=== PATIENT | male | born 1990 | race African-American/Black ===

== ENCOUNTER 2018-11-25 12:55 | Emergency (ER) | payer OTHER, SELFPAY ==
[~2018-11-25] VITALS: Ht 167.6 cm; Wt 100.6 kg
[2018-11-25] MEDS ORDERED: IBUPROFEN 800 MG TAB PO ONE (14:00)
--- NOTE | 2018-11-25 14:37 | REP ---
LEFT HAND: Four views of the left hand performed. There is an old avulsion fracture at the dorsal base of the fifth distal phalanx. No acute fracture, dislocation, or intrinsic bone disease is seen. IMPRESSION: No acute fracture or dislocation. Electronically Signed by Fadi Naranjo MD 11/25/2018 06:18 P
[2018-11-25 14:49] VITALS: BP 131/78
== END 2018-11-25 14:57 | disposition home or self-care (01) ==
LOC: M ED 12:55
DX: S63.502A Unspecified sprain of left wrist, initial encounter (principal); S60.222A Contusion of left hand, initial encounter; Z87.81 Personal history of (healed) traumatic fracture; W22.8XXA Striking against or struck by other objects, initial encounter; Y92.099 Unspecified place in other non-institutional residence as the place of occurrence of the external cause; Y93.9 Activity, unspecified; Y99.9 Unspecified external cause status; Z72.0 Tobacco use

== ENCOUNTER 2019-05-15 14:48 | Emergency (ER) | payer OTHER, SELFPAY ==
[~2019-05-15] VITALS: Ht 167.6 cm; Wt 104.1 kg
[2019-05-15 15:45] VITALS: BP 134/70
== END 2019-05-15 17:33 | disposition home or self-care (01) ==
LOC: M ED 14:48
DX: F41.9 Anxiety disorder, unspecified (principal); Z79.899 Other long term (current) drug therapy

== ENCOUNTER 2019-05-18 14:31 | Emergency (ER) | payer OTHER ==
[~2019-05-18] VITALS: Ht 165.1 cm; Wt 100.0 kg
[2019-05-18 15:37] LABS: BASO # 0.1 10^3/uL (0.0-0.2); BASO % 0.7 % (0.0-1.0); EOS # 0.1 10^3/uL (0.0-0.5); EOS % 1.2 % (0.0-3.0); LYMPH # 1.4 10^3/uL (1.5-5.0); LYMPH % 13.1 % (24.0-44.0); MEAN CORPUSCULAR HEMOGLOBIN 29.4 pg (27.0-33.0); MEAN CORPUSCULAR HGB CONC 33.3 g/dl (32.0-36.5); MEAN CORPUSCULAR VOLUME 88.1 fl (80.0-96.0); MONO # 1.4 10^3/uL (0.0-0.8); MONO % 12.8 % (0.0-5.0); NEUTROPHILS # 7.5 10^3/uL (1.5-8.5); NEUTROPHILS % 71.2 % (36.0-66.0); PLATELET COUNT, AUTOMATED 200 10^3/uL (150-450); RED BLOOD COUNT 5.45 10^6/uL (4.30-6.10); WHITE BLOOD COUNT 10.5 10^3/uL (4.0-10.0)
[2019-05-18 16:13] LABS: MONO SCRN NEGATIVE (NEGATIVE)
[2019-05-18] MEDS ORDERED: CEFD1CAP8 PO (17:20)
[2019-05-18 17:30] VITALS: BP 132/86
== END 2019-05-18 17:35 | disposition home or self-care (01) ==
LOC: M ED 14:31
DX: J03.90 Acute tonsillitis, unspecified (principal); F17.210 Nicotine dependence, cigarettes, uncomplicated

== ENCOUNTER 2019-08-25 13:51 | Emergency (ER) | payer OTHER ==
[~2019-08-25] VITALS: Ht 167.6 cm; Wt 108.0 kg
[~2019-08-25 13:51] MED LIST: CEFD1CAP8 PO
[2019-08-25] MEDS ORDERED: ADENOSINE 6MG/2ML INJECTION (J0153) IV STA ×3 (14:22)
[2019-08-25] MEDS ORDERED: ADENOSINE 6MG/2ML INJECTION (J0153) As Ordered ONE (14:23)
[2019-08-25 14:57] LABS: BASO # 0.1 10^3/uL (0.0-0.2); BASO % 0.8 % (0.0-1.0); EOS # 0.2 10^3/uL (0.0-0.5); EOS % 2.1 % (0.0-3.0); HEMATOCRIT 49.4 % (42.0-52.0); HEMOGLOBIN 16.2 g/dl (13.5-17.5); LYMPH % 37.8 % (24.0-44.0); MEAN CORPUSCULAR HEMOGLOBIN 28.3 pg (27.0-33.0); MEAN CORPUSCULAR HGB CONC 32.8 g/dl (32.0-36.5); MEAN CORPUSCULAR VOLUME 86.2 fl (80.0-96.0); MONO # 1.1 10^3/uL (0.0-0.8); MONO % 14.1 % (0.0-5.0); NEUTROPHILS # 3.6 10^3/uL (1.5-8.5); NEUTROPHILS % 44.4 % (36.0-66.0); PLATELET COUNT, AUTOMATED 209 10^3/uL (150-450); RED BLOOD COUNT 5.73 10^6/uL (4.30-6.10)
[2019-08-25 15:17] LABS: BLOOD UREA NITROGEN 10 MG/DL (7-18); CALCIUM LEVEL 8.4 MG/DL (8.5-10.1); CARBON DIOXIDE LEVEL 28 MEQ/L (21-32); CHLORIDE LEVEL 108 MEQ/L (98-107); CK-MB VALUE MASS < 1.0 NG/ML (<3.6); CPK CREATINE PHOSPHOKINASE 291 U/L (39-308); CREATININE FOR GFR 1.17 MG/DL (0.70-1.30); GLOMERULAR FILTRATION RATE > 60.0 (>60); GLUCOSE, FASTING 103 MG/DL (70-100); MB/CK RELATIVE INDEX 0.34 (< OR =4); POTASSIUM SERUM 3.9 MEQ/L (3.5-5.1); SODIUM LEVEL 142 MEQ/L (136-145); TROPONIN I < 0.02 NG/ML (< 0.10)
[2019-08-25] MEDS ORDERED: VERAPAMIL 40 MG TAB PO ONE (16:00)
[2019-08-25] MEDS ORDERED: VERA40TA PO (16:09)
[2019-08-25 16:20] VITALS: BP 116/60
[2019-08-25 16:27] VITALS: BP 116/60
--- NOTE | 2019-08-26 08:25 | REP ---
REASON: Chest pain. FINDINGS: The technique utilized in obtaining the radiograph has magnified the cardiac silhouette and accentuated the interstitial markings. The superior mediastinal structures are midline. The cardiac silhouette is unremarkable in size, shape, and position. The diaphragmatic surfaces of the lungs are regular, and the costophrenic angles are clear. The pulmonary dickerson are clear. The imaged osseous structures are intact. IMPRESSION: There is no acute cardiopulmonary disease. Electronically Signed by Jose Pan DO 08/30/2019 04:14 P
--- NOTE | 2019-08-26 08:31 | ECGEPIP ---
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
--- NOTE | 2019-08-26 08:32 | ECGEPIP ---
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
== END 2019-08-25 16:32 | disposition home or self-care (01) ==
LOC: EDBD 13:51 → M ED 13:51
DX: I47.1 Supraventricular tachycardia (principal); F41.9 Anxiety disorder, unspecified; F10.20 Alcohol dependence, uncomplicated; Z79.899 Other long term (current) drug therapy
CPT/HCPCS: 36415; 71045; 80048; 82550; 82553; 84443; 85025; 93005; 93041; 94760; 96374; 96376; 99285; J0153

== ENCOUNTER 2019-08-26 14:40 | Emergency (ER) | payer OTHER ==
[~2019-08-26] VITALS: Ht 165.1 cm; Wt 108.6 kg
[~2019-08-26 14:40] MED LIST changes: +VERA40TA PO
[2019-08-26] MEDS ORDERED: ASPIRIN 81 MG CHEW TABLET PO ONE (16:30)
[2019-08-26 17:10] LABS: BASO % 0.4 % (0.0-1.0); EOS % 0.6 % (0.0-3.0); HEMATOCRIT 51.4 % (42.0-52.0); HEMOGLOBIN 16.8 g/dl (13.5-17.5); LYMPH # 1.2 10^3/uL (1.5-5.0); LYMPH % 17.3 % (24.0-44.0); MEAN CORPUSCULAR HEMOGLOBIN 28.7 pg (27.0-33.0); MEAN CORPUSCULAR HGB CONC 32.7 g/dl (32.0-36.5); MEAN CORPUSCULAR VOLUME 87.9 fl (80.0-96.0); MONO # 0.6 10^3/uL (0.0-0.8); NEUTROPHILS # 5.1 10^3/uL (1.5-8.5); NEUTROPHILS % 72.1 % (36.0-66.0); PLATELET COUNT, AUTOMATED 206 10^3/uL (150-450); RED BLOOD COUNT 5.85 10^6/uL (4.30-6.10); WHITE BLOOD COUNT 7.1 10^3/uL (4.0-10.0)
--- NOTE | 2019-08-26 17:12 | REP ---
Clinical: Chest pain . Comparison: 08/25/2019 . Technique: PA and lateral. Findings: The mediastinum and cardiac silhouette are normal. The lung dickerson are clear and without acute consolidation, effusion, or pneumothorax. The skeletal structures are intact and normal. Impression: 1. No acute cardiopulmonary process. Electronically Signed by Addy Alvarez MD 08/26/2019 05:04 P
[2019-08-26 17:31] LABS: ALT/SGPT 28 U/L (12-78); BILIRUBIN,DIRECT 0.4 MG/DL (0.0-0.2); BILIRUBIN,TOTAL 1.4 MG/DL (0.2-1.0); BLOOD UREA NITROGEN 10 MG/DL (7-18); CALCIUM LEVEL 9.2 MG/DL (8.5-10.1); CARBON DIOXIDE LEVEL 25 MEQ/L (21-32); CHLORIDE LEVEL 108 MEQ/L (98-107); CK-MB VALUE MASS < 1.0 NG/ML (<3.6); CPK CREATINE PHOSPHOKINASE 181 U/L (39-308); CREATININE FOR GFR 1.15 MG/DL (0.70-1.30); GLOMERULAR FILTRATION RATE > 60.0 (>60); GLUCOSE, FASTING 85 MG/DL (70-100); LIPASE 84 U/L (73-393); MB/CK RELATIVE INDEX 0.55 (< OR =4); SODIUM LEVEL 140 MEQ/L (136-145); TOTAL PROTEIN 7.5 GM/DL (6.4-8.2); TROPONIN I < 0.02 NG/ML (< 0.10)
[2019-08-26 17:39] LABS: INR 1.06; PROTHROMBIN TIME 13.5 SECONDS (11.8-14.0)
[2019-08-26 18:16] VITALS: BP 120/68
--- NOTE | 2019-08-26 20:01 | ECGEPIP ---
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
== END 2019-08-26 18:18 | disposition home or self-care (01) ==
LOC: M ED 14:40
DX: R07.9 Chest pain, unspecified (principal); F41.9 Anxiety disorder, unspecified; F17.210 Nicotine dependence, cigarettes, uncomplicated

== ENCOUNTER → 2020-01-25 | Outpatient (CLI) | payer OTHER | LOC: M LABSMTC 09:06 | PROVIDERS: ATTEND Anesthesiology | DX: Z01.818 Encounter for other preprocedural examination (principal); Z11.59 Encounter for screening for other viral diseases ==

== ENCOUNTER 2020-01-28 13:52 | Day surgery (SDC) | payer OTHER ==
[~2020-01-28] VITALS: Ht 165.1 cm; Wt 115.8 kg
[~2020-01-28 13:52] MED LIST changes: +LR 1,000 ML IV SCH; +ceFAZolin SOD 2 GM in IV 1 EA IV ONE
[2020-01-28] MEDS ORDERED: fentaNYL 100 MCG/2 ML INJECTION (J3010) As Ordered ONE (14:13)
[2020-01-28] MEDS ORDERED: MIDAZOLAM INJ 2MG/2ML VIAL (J2250 PER 1MG) As Ordered ONE (14:13)
[2020-01-28] MEDS ORDERED: LIDOCAINE 1% MDV 20ML VIAL As Ordered ONE (14:48)
[2020-01-28] MEDS ORDERED: ONDANSETRON 4MG/2ML VIAL As Ordered ONE (15:25)
[2020-01-28 16:35] VITALS: BP 118/59
--- NOTE | 2020-01-28 17:16 | RO ---
DATE OF PROCEDURE: 01/28/2020 PREPROCEDURE DIAGNOSIS: Supraventricular tachycardia. POSTPROCEDURE DIAGNOSIS: Supraventricular tachycardia. FINDINGS: Supraventricular tachycardia. PROCEDURE PERFORMED: Implantation of Medtronic implantable loop recorder. SURGEON: Cristhian Berrios MD DINING ROOM SERVER: None. ANESTHESIA: Lidocaine 1% local/monitored anesthetic care. SPECIMENS: None. ESTIMATED BLOOD LOSS: Less than 3 mL. No blood products replaced. No drains. No complications. DESCRIPTION OF PROCEDURE: The patient was prepped and draped over the anterior central chest and left anterior chest. Lidocaine 1% was used for local anesthetic. Incision approximately 1 cm in length was made with a #15 blade at approximately the left 4th interspace 1 inch lateral to the left parasternal border using a #15 blade. The guide on the insertion tool was placed into the incision and advanced parallel to the skin in a left lateral-caudal direction. The insertion tool was rotated 180 degrees. The plunger was then used to advance the implantable loop recorder into the subcutaneous fat. The plunger was removed and then the insertion tool was removed leaving the loop recorder in situ. The initial R wave amplitude was 0.94 millivolts. The incision was then approximated using a temporary use of a #4-0 Biosyn placed subcuticular with the free ends protruding a centimeter from either end of the incision line at the level of the skin. Two layers of Dermabond was applied. Then, the Biosyn suture was pulled through the incision line and removed entirely. The patient tolerated the procedure well without any immediate complications. The implantable loop recorder implanted was a Uplogix Reveal LINQ model LNQ11. Serial number was [id number].
== END 2020-01-28 16:42 | disposition home or self-care (01) ==
LOC: M SDC 13:52
PROVIDERS: ATTEND Internal Medicine Cardiovascular Disease
DX: I47.1 Supraventricular tachycardia (principal); F41.9 Anxiety disorder, unspecified; G43.909 Migraine, unspecified, not intractable, without status migrainosus; F17.218 Nicotine dependence, cigarettes, with other nicotine-induced disorders
CPT/HCPCS: 33285; C1764; J0690; J2250; J2405; J3010

== ENCOUNTER → 2020-02-06 | Outpatient (REF) | payer OTHER ==
[~2020-02-06] MED LIST changes: -LR 1,000 ML IV SCH; -ceFAZolin SOD 2 GM in IV 1 EA IV ONE
[2020-02-06 13:57] LABS: BASO # 0.1 10^3/uL (0.0-0.2); BASO % 0.8 % (0.0-1.0); EOS # 0.1 10^3/uL (0.0-0.5); EOS % 1.9 % (0.0-3.0); HEMATOCRIT 47.8 % (42.0-52.0); HEMOGLOBIN 15.8 g/dl (13.5-17.5); LYMPH # 1.6 10^3/uL (1.5-5.0); LYMPH % 26.1 % (24.0-44.0); MEAN CORPUSCULAR HEMOGLOBIN 28.5 pg (27.0-33.0); MEAN CORPUSCULAR HGB CONC 33.1 g/dl (32.0-36.5); MEAN CORPUSCULAR VOLUME 86.1 fl (80.0-96.0); MONO # 0.7 10^3/uL (0.0-0.8); MONO % 10.9 % (0.0-5.0); NEUTROPHILS # 3.7 10^3/uL (1.5-8.5); NEUTROPHILS % 59.8 % (36.0-66.0); PLATELET COUNT, AUTOMATED 211 10^3/uL (150-450); RED BLOOD COUNT 5.55 10^6/uL (4.30-6.10); WHITE BLOOD COUNT 6.2 10^3/uL (4.0-10.0)
[2020-02-06 14:24] LABS: ALBUMIN 3.8 GM/DL (3.2-5.2); ALT/SGPT 29 U/L (12-78); BILIRUBIN,TOTAL 0.9 MG/DL (0.2-1.0); BLOOD UREA NITROGEN 10 MG/DL (7-18); CALCIUM LEVEL 8.9 MG/DL (8.5-10.1); CARBON DIOXIDE LEVEL 31 MEQ/L (21-32); CHLORIDE LEVEL 107 MEQ/L (98-107); CHOLESTEROL LEVEL 140 MG/DL (<200); CHOLESTEROL RISK RATIO 2.692 (<5); CREATININE FOR GFR 1.01 MG/DL (0.70-1.30); FREE T4 1.11 NG/DL (0.76-1.46); GLOMERULAR FILTRATION RATE > 60.0 (>60); GLUCOSE, FASTING 73 MG/DL (70-100); HDL CHOLESTEROL 52 MG/DL (>40); LDL CHOLESTEROL 80 MG/DL (<100); NON-HDL-C 88 MG/DL; POTASSIUM SERUM 4.3 MEQ/L (3.5-5.1); SODIUM LEVEL 141 MEQ/L (136-145); TRIGLYCERIDES LEVEL 41 MG/DL (<150)
[2020-02-06 14:43] LABS: HEMOGLOBIN A1c 3.9 %
[2020-02-09 20:07] LABS: D001-IgE D pteronyssinus <0.10 kU/L (Class 0); E001-IgE Cat Epith/Dander < 0.10 kU/L (Class 0); E005-IgE Dog Dander < 0.10 kU/L (Class 0); G002-IgE Bermuda Grass < 0.10 kU/L (Class 0); G008-IgE Kentucky Bluegrass < 0.10 kU/L (Class 0); M001-IgE Penicillium chrysogen < 0.10 kU/L (Class 0); M002 IgE Cladosporium herbaru < 0.10 kU/L (Class 0); M003 IgE Aspergillus fumigatu < 0.10 kU/L (Class 0); M006-IgE Alternaria alternata < 0.10 kU/L (Class 0); T001-IgE Maple/Box Elder < 0.10 kU/L (Class 0); T003-IgE Common Silver Birch < 0.10 kU/L (Class 0); T006-IgE Cedar, Mountain < 0.10 kU/L (Class 0); T007-IgE Oak, White < 0.10 kU/L (Class 0); T008-IgE Elm, American < 0.10 kU/L (Class 0); T015-IgE Ash, White < 0.10 kU/L (Class 0); T041-IgE Hickory, White < 0.10 kU/L (Class 0); T070-IgE White Mulberry < 0.10 kU/L (Class 0); W001-IgE Ragweed, Short < 0.10 kU/L (Class 0); W009-IgE Plantain, English < 0.10 kU/L (Class 0); W014-IgE Pigweed, Rough < 0.10 kU/L (Class 0); W018-IgE Sheep Sorrel < 0.10 kU/L (Class 0)
== END ==
LOC: M SFHCPLAZ 09:54
PROVIDERS: ATTEND Physician Assistant Medical
DX: R51 Headache (principal); I47.1 Supraventricular tachycardia; Z13.220 Encounter for screening for lipoid disorders; E66.01 Morbid (severe) obesity due to excess calories

== ENCOUNTER 2020-08-08 20:35 | Emergency (ER) | payer OTHER ==
[~2020-08-08] VITALS: Ht 167.6 cm; Wt 123.2 kg
[2020-08-08 20:36] VITALS: BP 142/94
== END 2020-08-08 21:10 | disposition left against medical advice (07) ==
LOC: M ED 20:35
DX: Z53.29 Procedure and treatment not carried out because of patient's decision for other reasons (principal)

== ENCOUNTER 2020-08-09 18:04 | Emergency (ER) | payer OTHER ==
[~2020-08-09] VITALS: Ht 168.9 cm; Wt 120.7 kg
[2020-08-09] MEDS ORDERED: NS 1,000 ML IV ONE ×2 (19:15→21:15)
[2020-08-09] MEDS ORDERED: ONDANSETRON 4MG/2ML VIAL IV ONE (20:15)
[2020-08-09] MEDS ORDERED: MORPHINE 2 MG/ML 1ML VIAL (J2270) IV ONE (20:15)
[2020-08-09 20:21] LABS: BASO % 0.2 % (0.0-1.0); EOS # 0.1 10^3/uL (0.0-0.5); EOS % 1.1 % (0.0-3.0); HEMATOCRIT 45.4 % (42.0-52.0); HEMOGLOBIN 14.3 g/dl (13.5-17.5); LYMPH # 1.8 10^3/uL (1.5-5.0); MEAN CORPUSCULAR HEMOGLOBIN 26.1 pg (27.0-33.0); MEAN CORPUSCULAR HGB CONC 31.5 g/dl (32.0-36.5); MEAN CORPUSCULAR VOLUME 82.8 fl (80.0-96.0); MONO # 1.2 10^3/uL (0.0-0.8); MONO % 11.8 % (0.0-5.0); NEUTROPHILS # 6.9 10^3/uL (1.5-8.5); NEUTROPHILS % 68.3 % (36.0-66.0); PLATELET COUNT, AUTOMATED 225 10^3/uL (150-450); RED BLOOD COUNT 5.48 10^6/uL (4.30-6.10)
--- NOTE | 2020-08-09 20:21 | REPVR ---
PROCEDURE INFORMATION: Exam: XR Abdomen, 1 View Exam date and time: 08/09/2020 7:46 PM Age: 29 years old Clinical indication: Abdominal pain; Additional info: Constipation x 5 days TECHNIQUE: Imaging protocol: XR of the abdomen. Views: Frontal supine view of the abdomen. 1 View. COMPARISON: No relevant prior studies available. FINDINGS: Gastrointestinal tract: Small amount of stool noted in the ascending colon and proximal descending colon. Few minimally dilated air-containing small bowel loops in the left mid abdomen. Bones/joints: Unremarkable. IMPRESSION: 1. Small stool burden. 2. Mild focal small bowel ileus. Electronically signed by: Joie Armijo On 08/09/2020 20:21:44 PM
[2020-08-09 20:55] LABS: ALBUMIN 3.7 GM/DL (3.2-5.2); ALT/SGPT 20 U/L (12-78); BILIRUBIN,DIRECT 0.4 MG/DL (0.0-0.2); BILIRUBIN,TOTAL 1.4 MG/DL (0.2-1.0); BLOOD UREA NITROGEN 13 MG/DL (7-18); CALCIUM LEVEL 8.9 MG/DL (8.5-10.1); CARBON DIOXIDE LEVEL 25 MEQ/L (21-32); CHLORIDE LEVEL 105 MEQ/L (98-107); CK-MB VALUE MASS < 1.0 NG/ML (<3.6); CPK CREATINE PHOSPHOKINASE 528 U/L (39-308); GLOMERULAR FILTRATION RATE > 60.0 (>60); GLUCOSE, FASTING 64 MG/DL (70-100); LIPASE 173 U/L (73-393); MB/CK RELATIVE INDEX 0.19 (< OR =4); POTASSIUM SERUM 3.8 MEQ/L (3.5-5.1); SODIUM LEVEL 140 MEQ/L (136-145); TOTAL PROTEIN 7.2 GM/DL (6.4-8.2); TROPONIN I < 0.02 NG/ML (< 0.10)
[2020-08-09] MEDS ORDERED: MULTIVITAMIN -ADULT INJECTION 10 ML, THIAMINE INJection 100 MG, FOLIC ACID 1 MG in NS 1... IV ONE (21:15)
[2020-08-09] MEDS ORDERED: MORPHINE 4 MG/ML 1ML VIAL/SYRINGE (J2270) IV ONE (23:30)
[2020-08-09] MEDS ORDERED: METOCLOPRAMIDE INJ 10MG/2ML VIAL (J2765 PER 1) IV ONE (23:30)
[2020-08-09] MEDS: GASTROGRAFIN SOLUTION 30ML PO SCH (23:33)
[2020-08-10] MEDS: GASTROGRAFIN SOLUTION 30ML PO SCH (00:11)
[2020-08-10] MEDS ORDERED: ISOVUE-370 76% 100ML VIAL As Ordered ONE (01:01)
--- NOTE | 2020-08-10 01:43 | REPVR ---
PROCEDURE INFORMATION: Exam: CT Abdomen And Pelvis With Contrast Exam date and time: 08/09/2020 1:12 AM Age: 29 years old Clinical indication: Abdominal pain; Prior surgery; Additional info: Recent gastric bypass, epigastric pain TECHNIQUE: Imaging protocol: Computed tomography of the abdomen and pelvis with intravenous contrast. Radiation optimization: All CT scans at this facility use at least one of these dose optimization techniques: automated exposure control; mA and/or kV adjustment per patient size (includes targeted exams where dose is matched to clinical indication); or iterative reconstruction. Contrast material: ISO 370; Contrast volume: 100 ml; Contrast route: INTRAVENOUS (IV); COMPARISON: CR Abdomen,Flat Plate KUB 08/09/2020 7:39 PM FINDINGS: Lungs: The imaged portions of the lung bases are clear. The lungs were not fully imaged. Heart: No cardiomegaly or pericardial effusion. Diaphragm: Intact. Liver: Unremarkable. No liver lesion is identified. The contour of the liver is smooth. No hepatomegaly is noted. Gallbladder and bile ducts: No calcified gallstones are noted. No gallbladder wall thickening, pericholecystic fluid, or pericholecystic inflammatory changes are identified. No dilation of the bile ducts is noted. No calcified stones are seen in the common bile duct. Pancreas: Normal. No dilation of the main pancreatic duct is noted. There is no inflammatory fat stranding around the pancreas to suggest acute pancreatitis. Spleen: Normal. No splenomegaly is noted. Incidental note is made of a small accessory spleen. Adrenal glands: Normal. No adrenal mass is noted. Kidneys and ureters: The kidneys are normal in appearance. No renal lesion is noted. No stones are noted in the kidneys or ureters. There is no hydronephrosis or hydroureter. There are no wedge-shaped areas of low attenuation in the kidneys to suggest pyelonephritis. There is no renal abscess or perinephric fluid collection. Stomach and bowel: Postoperative changes are noted from a Aby-en-Y gastric bypass surgery. There is thickening of the wall of the excluded stomach. There is no evidence for a bowel obstruction, diverticulosis, diverticulitis, colitis, perforated viscus, pneumatosis intestinalis, intussusception, or volvulus. Appendix: The appendix is not identified and may have been removed. No dilated blind ending tubular structure, inflammatory fat stranding, or fluid is noted in the expected location of the appendix. Intraperitoneal space: No free air. No ascites. No asbcess. Retroperitoneal space: No fluid collection. No mass. Vasculature: The abdominal aorta is patent, normal in caliber, and there is no dissection. The iliac arteries, common femoral arteries, renal arteries, celiac artery, superior mesenteric artery, and inferior mesenteric artery are patent. The iliac veins, inferior vena cava, portal veins, splenic vein, superior mesenteric vein, inferior mesenteric vein, and renal veins are patent. Incidental note is made of a retroaortic left renal vein. Lymph nodes: Normal. No enlarged lymph nodes. Urinary bladder: The distended urinary bladder is normal in appearance. No stones or masses are seen in the bladder. Reproductive: The prostate gland and seminal vesicles are unremarkable. Bones/joints: There is no fracture or dislocation. No suspicious osteolytic or osteoblastic lesion. Soft tissues: Small foci of gas and edema are noted in the soft tissues in the anterior abdominal wall. No hernia or drainable soft tissue fluid collection is noted. IMPRESSION: Postoperative changes from a Aby-en-Y gastric bypass surgery and there is thickening of the wall of the excluded stomach, which may represent gastritis or may be due to its decompressed state. Electronically signed by: Nathaniel Mcknight On 08/10/2020 01:43:39 AM
[2020-08-10] MEDS ORDERED: NORC1TAB7 PO (01:54)
[2020-08-10 02:05] VITALS: BP 131/78
[2020-08-11] MEDS ORDERED: ENOX40IN3 SUBQ (09:48)
== END 2020-08-10 02:09 | disposition home or self-care (01) ==
LOC: M ED 18:04
DX: G89.18 Other acute postprocedural pain (principal); K29.70 Gastritis, unspecified, without bleeding; K59.00 Constipation, unspecified; Z98.84 Bariatric surgery status
CPT/HCPCS: 74018; 74177; 80048; 80076; 81001; 82550; 82553; 83605; 83690; 85025; 96365; 96366; 96375; 96376; 99284; J2270; J2405; J2765; J3411; Q9963; Q9967

== ENCOUNTER 2020-08-11 09:29 | Emergency (ER) | payer OTHER ==
[~2020-08-11] VITALS: Ht 167.6 cm; Wt 120.0 kg
[~2020-08-11 09:29] MED LIST changes: +NORC1TAB7 PO
[2020-08-11] MEDS ORDERED: ENOX40IN3 SUBQ (09:48)
--- NOTE | 2020-08-11 10:33 | REP ---
INDICATION: CHEST PAIN. COMPARISON: Comparison chest x-ray August 26, 2019.. TECHNIQUE: Upright portable AP chest radiograph. FINDINGS: Monitoring electrodes are seen. The lungs are well inflated and clear. The pleural angles are sharp. Heart size is normal. Pulmonary vasculature is not increased. No bony abnormality. IMPRESSION: Negative portable chest x-ray. <Electronically signed by Bismark Gonsalves > 08/11/20 1021
[2020-08-11 11:08] LABS: BASO % 0.4 % (0.0-1.0); EOS # 0.3 10^3/uL (0.0-0.5); EOS % 2.7 % (0.0-3.0); HEMATOCRIT 48.7 % (42.0-52.0); HEMOGLOBIN 15.9 g/dl (13.5-17.5); LYMPH # 1.5 10^3/uL (1.5-5.0); LYMPH % 15.2 % (24.0-44.0); MEAN CORPUSCULAR HGB CONC 32.6 g/dl (32.0-36.5); MEAN CORPUSCULAR VOLUME 82.7 fl (80.0-96.0); MONO # 1.1 10^3/uL (0.0-0.8); NEUTROPHILS # 6.9 10^3/uL (1.5-8.5); NEUTROPHILS % 69.8 % (36.0-66.0); PLATELET COUNT, AUTOMATED 277 10^3/uL (150-450); RED BLOOD COUNT 5.89 10^6/uL (4.30-6.10); WHITE BLOOD COUNT 9.8 10^3/uL (4.0-10.0)
[2020-08-11 11:11] LABS: INR 1.06
[2020-08-11 11:12] LABS: PARTIAL THROMBOPLASTIN TIME 32.4 SECONDS (24.2-38.5)
[2020-08-11 11:25] LABS: BLOOD UREA NITROGEN 13 MG/DL (7-18); CALCIUM LEVEL 9.3 MG/DL (8.5-10.1); CARBON DIOXIDE LEVEL 22 MEQ/L (21-32); CHLORIDE LEVEL 105 MEQ/L (98-107); CK-MB VALUE MASS 2.9 NG/ML (<3.6); CPK CREATINE PHOSPHOKINASE 196 U/L (39-308); CREATININE FOR GFR 1.14 MG/DL (0.70-1.30); GLOMERULAR FILTRATION RATE > 60.0 (>60); GLUCOSE, FASTING 67 MG/DL (70-100); MAGNESIUM LEVEL 2.2 MG/DL (1.8-2.4); MB/CK RELATIVE INDEX 1.48 (< OR =4); NT-PRO BNP 31 PG/ML (<125); POTASSIUM SERUM 3.7 MEQ/L (3.5-5.1); SODIUM LEVEL 137 MEQ/L (136-145); THYROID STIMULATING HORMONE 0.569 uIU/ML (0.358-3.740); TROPONIN I < 0.02 NG/ML (< 0.10)
[2020-08-11] MEDS ORDERED: ISOVUE-370 76% 100ML VIAL As Ordered ONE (12:30)
--- NOTE | 2020-08-11 13:03 | REP ---
INDICATION: postoperative gastric bypass, palpitations. COMPARISON: None. TECHNIQUE: CT of the chest with IV contrast, pulmonary artery CT angiography protocol. FINDINGS: There are no emboli in the pulmonary trunk or central pulmonary arteries. There are no emboli in the pulmonary artery lobar segment branches. There are no infiltrates. There are no pleural effusions. There are no masses or nodules. There is no mediastinal, hilar are or axillary lymph node enlargement. Thoracic aorta is unremarkable. Cardiac size is normal. There is no pericardial effusion. There are surgical clips in the upper abdomen compatible with bariatric surgery. Visualized areas of the gallbladder, liver, pancreas, spleen, adrenals and renal upper poles are unremarkable. IMPRESSION: There are no pulmonary emboli. There are no acute cardiopulmonary findings. There are surgical clips in the upper abdomen compatible with bariatric surgery. <Electronically signed by Fdai Tafoya > 08/11/20 1300
[2020-08-11 13:15] VITALS: BP 106/56
--- NOTE | 2020-08-12 08:24 | ECGEPIP ---
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
== END 2020-08-11 13:30 | disposition home or self-care (01) ==
LOC: EDBD 09:29 → M ED 09:29
DX: R00.2 Palpitations (principal); R00.0 Tachycardia, unspecified; Z98.84 Bariatric surgery status; Z79.899 Other long term (current) drug therapy
CPT/HCPCS: 36415; 71045; 71275; 80048; 82550; 82553; 83735; 83880; 84443; 85025; 85610; 85730; 93005; 93041; 94760; 99285; Q9967

== ENCOUNTER 2020-08-14 10:48 | Emergency (ER) | payer OTHER ==
[~2020-08-14] VITALS: Ht 167.6 cm; Wt 118.2 kg
[~2020-08-14 10:48] MED LIST changes: +ENOX40IN3 SUBQ
[2020-08-14] MEDS ORDERED: ONDA4TAB6 SL (11:23)
[2020-08-14] MEDS ORDERED: OMEP-221 PO (11:23)
[2020-08-14 11:29] LABS: BASO # 0.1 10^3/uL (0.0-0.2); BASO % 0.6 % (0.0-1.0); EOS # 0.2 10^3/uL (0.0-0.5); EOS % 2.1 % (0.0-3.0); HEMATOCRIT 48.1 % (42.0-52.0); LYMPH # 1.4 10^3/uL (1.5-5.0); MEAN CORPUSCULAR HEMOGLOBIN 26.8 pg (27.0-33.0); MEAN CORPUSCULAR HGB CONC 33.3 g/dl (32.0-36.5); MEAN CORPUSCULAR VOLUME 80.7 fl (80.0-96.0); MONO # 1.1 10^3/uL (0.0-0.8); MONO % 12.9 % (0.0-5.0); NEUTROPHILS # 5.8 10^3/uL (1.5-8.5); NEUTROPHILS % 67.1 % (36.0-66.0); PLATELET COUNT, AUTOMATED 301 10^3/uL (150-450); RED BLOOD COUNT 5.96 10^6/uL (4.30-6.10); WHITE BLOOD COUNT 8.7 10^3/uL (4.0-10.0)
[2020-08-14 12:01] LABS: BLOOD UREA NITROGEN 14 MG/DL (7-18); CALCIUM LEVEL 9.5 MG/DL (8.5-10.1); CARBON DIOXIDE LEVEL 18 MEQ/L (21-32); CHLORIDE LEVEL 106 MEQ/L (98-107); CK-MB VALUE MASS 1.4 NG/ML (<3.6); CPK CREATINE PHOSPHOKINASE 102 U/L (39-308); CREATININE FOR GFR 1.29 MG/DL (0.70-1.30); GLOMERULAR FILTRATION RATE > 60.0 (>60); GLUCOSE, FASTING 77 MG/DL (70-100); MB/CK RELATIVE INDEX 1.37 (< OR =4); POTASSIUM SERUM 3.8 MEQ/L (3.5-5.1); SODIUM LEVEL 137 MEQ/L (136-145); TROPONIN I 0.02 NG/ML (< 0.10)
--- NOTE | 2020-08-14 13:09 | REP ---
INDICATION: 7 days post-op, tachycardia, L>R calf pain COMPARISON: None. FINDINGS: The deep veins demonstrate normal compression, normal Doppler color flow and normal Doppler waveforms with respiration augmentation from the popliteal veins to the common femoral veins bilaterally. IMPRESSION: There is no deep vein thrombus in the right or left lower extremities. <Electronically signed by Fadi Tafoya > 08/14/20 1000
[2020-08-14] MEDS ORDERED: NS 1,000 ML IV ONE ×3 (13:45→18:15)
[2020-08-14] MEDS ORDERED: NS 1,000 ML IV SCH (22:00)
[2020-08-14 23:00] VITALS: BP 126/55
--- NOTE | 2020-08-14 23:57 | CR.PDOC ---
General Date of Consultation: Aug 14, 2020 Referring Provider: JOON ROJAS DO Primary Care Physician: Donald Junior M.D. Attending Physician: Scout Donato MD Consultation REASON FOR CONSULTATION/CHIEF COMPLAINT: I was asked by Dr. Rojas to assess Mr. Centeno for possible hospital admission. Mr. Centeno' chief complaint is feeling dizzy and heart racing. HISTORY OF PRESENT ILLNESS: Nelson is a patient who sees Margy Garcia NP in the outpatient setting. On August 07 he had gastric bypass done by Dr. Villa. He was discharged from [facility] on 08/09/2020. This is his third visit to the ER since discharge. His complaint today is that he feels dizzy when he stands and that his heart is pounding fast. He reports that this is been goi ng on and getting worse for the last 3 days. He is occasionally having an associated headache with this. He acknowledges that he was told to drink at least 64 ounces of water each day but he has not been doing that. He does have a history of supraventricular tachycardia that was evaluated roughly one year ago without a satisfactory cause noted. Since then, he has not had a significant problem with tachycardia. ALLERGIES: Please see below. HOME MEDICATIONS: Please see below. PAST MEDICAL HISTORY: 1. SVT, evaluated with left heart catheterization. The plan was to do an ablation but they did not find the aberrant tissue. 2. Morbid obesity, status post gastric bypass. 3. Genital warts. PAST SURGICAL HISTORY: 1. Appendectomy, 2010 2. Left heart catheterization at [facility]. 3. Gastric bypass, [facility] in [place], 08/2020. FAMILY HISTORY: Father: Alive, 50 years old, known medical problems Mother: Alive, 49 years old, hypothyroidism, "leaky heart valves" Children: One son with no known medical problems, one daughter with sickle cell trait Hereditary Diseases: His daughter has sickle cell trait and her mother is . This would lead us to strongly suspect that Nelson has sickle cell trait as well. SOCIAL HISTORY: Marital status and/or living arrangements: Lives in a half house. The bathroom is upstairs, so he does not have all he needs on one floor. Tobacco use: He quit smoking one week ago just prior to his gastric bypass surgery. He has tach with this decision so far. ETOH: He stopped drinking alcohol altogether about one year ago when he was first diagnosed with SVT. Illicit drug use: Denies any REVIEW OF SYSTEMS: ROS: Constitutional: NO fever, night sweats, significant weight loss or gain Neuro: Occasional headaches associated with dehydration and standing;NO fasciculations or seizure like activity Eyes: NO acute changes in vision ENT: NO sore throat, acute changes in hearing, rhinorrhea Resp: NO cough, dyspnea, pleuritic chest pain Cardio: palpitations when he stands; NO chest pain, orthopnea GI: Decreased appetite after surgery; NO dysphagia, vomiting, constipation, diarrhea, melena, hematochezia : NO dysuria, hematuria Musk/Skel: NO unusual joint aches, muscle pains Psych: NO recent depression, hallucinations Heme/Lymph: NO problems with easy bruising PHYSICAL EXAMINATION: VITAL SIGNS: Please see below. GENERAL APPEARANCE: Lying flat in the ER stretcher when in the room. In no acute distress. HEENT: Normocephalic and atraumatic, mucous membranes are slightly dry, no noted oral or pharyngeal lesions. RESPIRATORY: Chest is symmetric and expands symmetrically on inspiration. Lung dickerson are clear to auscultation bilaterally. CARDIOVASCULAR: S1 and S2 are noted to be in a regular rate and rhythm. There are no noted murmurs rubs or gallops. ABDOMEN: Obese. There are multiple well healing surgical port sites from his recent gastric bypass surgery. His abdomen is soft and nontender to light palpation. Bowel sounds are positive in all 4 quadrants. EXTREMITIES: No edema. Extremities are warm and well-perfused. LABORATORY DATA: Please see below. ASSESSMENT/PLAN: 1. Orthostatic hypotension. He did meet criteria by a drop in diastolic pressure and increased pulse rate. After the infusion of 3 L of saline he still had some symptoms but was generally much improved. The question at hand was he was safe for discharge home or needed to stay in the hospital for monitoring. Since he did reasonably well with IV hydration I think he will be able to do fine completing his hydration with oral rehydration therapy. I counseled him on how to do this carefully. He was agreeable to discharge home. 2. Dehydration. He was instructed carefully to drink at least 64 ounces of water daily after his gastric bypass surgery. Unfortunately he has not done this, and I do believe this is a major underlying cause of his orthostasis. Rehydration should fix the problem as noted above. 3. Status post gastric bypass surgery about 1 week ago. His surgical site seem to be healing well. He was carefully instructed on how to care for himself in the post hospital, but has not been following these instructions. I emphasized is important that he follow all instructions he was given on discharge from the hospital where he might end up back in the emergency department. He seemed to understand this and expressed willingness to comply. 4. History of supraventricular tachycardia. I think one of the concerns the patient had was that the tachycardia he was experiencing relative to his orthostasis felt the same as the tachycardia he was experiencing when he had spontaneous SVT. I took some time explained physiologic tachycardia versus inappropriate tachycardia. Once I explained this to him he seemed much less concerned about the tachycardia as a symptom. He is committed to rehydrating and order to make the symptoms go away. 5. Family history of sickle cell trait. He reports that his daughter has known sickle cell trait. As his daughter's mother is and he is - [place], it seems likely that she got the trait from him. He is not aware of having sickle cell trait. This may be a useful evaluation to be done by his primary care provider in the outpatient setting. It could explain, in part, why his body seems so sensitive to dehydration. I scheduled an ER follow-up for him with his PCP, Leo Garcia, on 08/17 at 2 PM. Vital Signs/I&O Vital Signs Date Time Temp Pulse Resp B/P (MAP) Pulse Ox O2 Delivery O2 Flow Rate FiO2 08/14/20 23:00 92 126/55 (78) 97 08/14/20 18:45 19 Room Air 08/14/20 11:09 97.8 Laboratory Data Labs 24H Laboratory Tests 2 08/14/20 11:13: Magnesium Level 2.0 08/14/20 11:16: Immature Granulocyte % (Auto) 1.3, Neutrophils (%) (Auto) 67.1H, Lymphocytes (%) (Auto) 16.0L, Monocytes (%) (Auto) 12.9H, Eosinophils (%) (Auto) 2.1, Basophils (%) (Auto) 0.6, Neutrophils # (Auto) 5.8, Lymphocytes # (Auto) 1.4L, Monocytes # (Auto) 1.1H, Eosinophils # (Auto) 0.2, Basophils # (Auto) 0.1, Nucleated Red Blood Cells % (auto) 0.0, Anion Gap 13, Glomerular Filtration Rate > 60.0, Calcium Level 9.5, Total Creatine Kinase 102, Creatine Kinase MB 1.4, Creatine Kinase MB Relative Index 1.37, Troponin I 0.02 08/14/20 11:38: Bedside Glucose (Misc Panel) 73 08/14/20 22:30: Coronavirus (COVID-19)(PCR) NEGATIVE, Influenza Type A (RT-PCR) NEGATIVE, Influenza Type B (RT-PCR) NEGATIVE, Respiratory Syncytial Virus (PCR) NEGATIVE CBC/BMP Laboratory Tests 08/14/20 11:16 Allergies Coded Allergies: No Known Allergies (Unverified , 01/28/20) Home Medications Scheduled Enoxaparin Sodium (Enoxaparin Sodium) 40 Mg/0.4 Ml Syringe, 40 MG SUBQ DAILY, (Reported) Omeprazole (Omeprazole) 40 Mg Capsule.dr, 40 MG PO DAILY, (Reported) Scheduled PRN Ondansetron (Ondansetron Odt) 4 Mg Tab.rapdis, 4 MG SL Q8H PRN for NAUSEA OR VOMITING, (Reported) Scout Donato MD Aug 14, 2020 23:57
--- NOTE | 2020-08-15 09:31 | ECGEPIP ---
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
== END 2020-08-15 00:05 | disposition home or self-care (01) ==
LOC: EDBD 10:48 → M ED 10:48
DX: I95.1 Orthostatic hypotension (principal); E86.0 Dehydration; Z98.84 Bariatric surgery status

== ENCOUNTER 2021-12-06 15:10 | Emergency (ER) | payer OTHER ==
[~2021-12-06] VITALS: Ht 167.6 cm; Wt 84.0 kg
[2021-12-06 15:10] VITALS: BP 121/81
[~2021-12-06 15:10] MED LIST changes: -CEFD1CAP8 PO; +CEFD300C41 PO; +OMEP40CA5 PO; +ONDA4TAB6 SL
== END 2021-12-06 17:39 | disposition left against medical advice (07) ==
LOC: M ED 15:10
DX: Z53.21 Procedure and treatment not carried out due to patient leaving prior to being seen by health care provider (principal)

== ENCOUNTER 2022-01-06 18:34 | Emergency (ER) | payer OTHER ==
[~2022-01-06] VITALS: Ht 165.1 cm; Wt 81.8 kg
[~2022-01-06 18:34] MED LIST changes: +CLIN-250
[2022-01-06 18:35] VITALS: BP 138/83
[2022-01-06] MEDS ORDERED: MAGN1.743 (18:43)
[2022-01-06] MEDS ORDERED: ONDA8TAB8 (18:43)
[2022-01-06] MEDS ORDERED: POLY17PO18 (18:43)
[2022-01-06] MEDS ORDERED: GI COCKTAIL 50ML BTL(HYOSCYAMINE/MAALOX/LIDOCAINE VISCOUS)(1:3:1) PO ONE (19:45)
[2022-01-06 20:05] LABS: BASO % 0.4 % (0.0-1.0); EOS # 0.1 10^3/uL (0.0-0.5); EOS % 0.8 % (0.0-3.0); HEMATOCRIT 47.5 % (42.0-52.0); HEMOGLOBIN 15.7 g/dl (13.5-17.5); LYMPH # 1.6 10^3/uL (1.5-5.0); LYMPH % 21.2 % (24.0-44.0); MEAN CORPUSCULAR HGB CONC 33.1 g/dl (32.0-36.5); MEAN CORPUSCULAR VOLUME 87.8 fl (80.0-96.0); MONO # 0.7 10^3/uL (0.0-0.8); MONO % 8.8 % (2.0-8.0); NEUTROPHILS # 5.2 10^3/uL (1.5-8.5); NEUTROPHILS % 68.7 % (36.0-66.0); PLATELET COUNT, AUTOMATED 210 10^3/uL (150-450); RED BLOOD COUNT 5.41 10^6/uL (4.30-6.10); WHITE BLOOD COUNT 7.5 10^3/uL (4.0-10.0)
[2022-01-06 20:52] LABS: RSV AMPLIFICATION NEGATIVE (NEGATIVE)
[2022-01-06] MEDS ORDERED: AMOX875T2 PO (21:06)
[2022-01-06 21:56] LABS: MONO SCRN NEGATIVE (NEGATIVE)
[2022-01-06 22:13] LABS: ALBUMIN 3.5 GM/DL (3.2-5.2); ALT/SGPT 32 U/L (12-78); BILIRUBIN,DIRECT 0.2 MG/DL (0.0-0.2); BLOOD UREA NITROGEN 9 MG/DL (7-18); CALCIUM LEVEL 8.4 MG/DL (8.5-10.1); CARBON DIOXIDE LEVEL 28 MEQ/L (21-32); CHLORIDE LEVEL 108 MEQ/L (98-107); CREATININE FOR GFR 0.96 MG/DL (0.70-1.30); GLOMERULAR FILTRATION RATE > 60.0 (>60); GLUCOSE, FASTING 95 MG/DL (70-100); LIPASE 81 U/L (73-393); POTASSIUM SERUM 5.2 MEQ/L (3.5-5.1); SODIUM LEVEL 140 MEQ/L (136-145); TOTAL PROTEIN 6.4 GM/DL (6.4-8.2)
[2022-01-06] MEDS: GASTROGRAFIN SOLUTION 30ML PO SCH ×2 (23:07→23:11)
[2022-01-07] MEDS ORDERED: OMEP40CA4 PO (01:41)
[2022-01-08] MEDS ORDERED: OMEP40CA5 PO (15:59)
[2022-01-08] MEDS ORDERED: SUCR1TAB56 PO (15:59)
[2022-01-08] MEDS ORDERED: AMOX875T2 PO (15:59)
== END 2022-01-07 01:58 | disposition home or self-care (01) ==
LOC: M ED 18:34
DX: R10.12 Left upper quadrant pain (principal); K21.9 Gastro-esophageal reflux disease without esophagitis; F17.200 Nicotine dependence, unspecified, uncomplicated; F10.10 Alcohol abuse, uncomplicated; Z95.1 Presence of aortocoronary bypass graft; Z79.899 Other long term (current) drug therapy
CPT/HCPCS: 36415; 74176; 80048; 80076; 83690; 85025; 86308; 87631; 99284; Q9963

== ENCOUNTER 2022-01-08 12:29 | Emergency (ER) | payer OTHER ==
[~2022-01-08] VITALS: Ht 167.6 cm; Wt 82.0 kg
[~2022-01-08 12:29] MED LIST changes: +AMOX875T2 PO; +MAGN1.743; +OMEP40CA4 PO; +ONDA8TAB8; +POLY17PO18
[2022-01-08] MEDS ORDERED: ONDANSETRON 4MG/2ML VIAL IV ONE (13:05)
[2022-01-08] MEDS ORDERED: NS 1,000 ML IV SCH (13:05)
[2022-01-08] MEDS ORDERED: MORPHINE 4 MG/ML 1ML VIAL/SYRINGE IV ONE (13:05)
[2022-01-08] MEDS ORDERED: GI COCKTAIL 50ML BTL(HYOSCYAMINE/MAALOX/LIDOCAINE VISCOUS)(1:3:1) PO ONE (13:10)
[2022-01-08] MEDS ORDERED: PANTOPRAZOLE 40MG VIAL IV ONE (13:10)
[2022-01-08 13:30] LABS: BASO % 0.6 % (0.0-1.0); EOS # 0.1 10^3/uL (0.0-0.5); EOS % 1.6 % (0.0-3.0); HEMATOCRIT 44.7 % (42.0-52.0); HEMOGLOBIN 14.8 g/dl (13.5-17.5); LYMPH # 1.5 10^3/uL (1.5-5.0); LYMPH % 28.8 % (24.0-44.0); MEAN CORPUSCULAR HEMOGLOBIN 28.8 pg (27.0-33.0); MEAN CORPUSCULAR HGB CONC 33.1 g/dl (32.0-36.5); MEAN CORPUSCULAR VOLUME 87.1 fl (80.0-96.0); MONO # 0.4 10^3/uL (0.0-0.8); MONO % 8.7 % (2.0-8.0); NEUTROPHILS % 60.1 % (36.0-66.0); PLATELET COUNT, AUTOMATED 213 10^3/uL (150-450); RED BLOOD COUNT 5.13 10^6/uL (4.30-6.10)
[2022-01-08] MEDS: GASTROGRAFIN SOLUTION 30ML PO SCH ×2 (13:45→14:15)
[2022-01-08 13:52] LABS: ALBUMIN 3.6 GM/DL (3.2-5.2); ALT/SGPT 28 U/L (12-78); BILIRUBIN,DIRECT 0.2 MG/DL (0.0-0.2); BILIRUBIN,TOTAL 0.9 MG/DL (0.2-1.0); BLOOD UREA NITROGEN 6 MG/DL (7-18); CALCIUM LEVEL 9.2 MG/DL (8.5-10.1); CARBON DIOXIDE LEVEL 29 MEQ/L (21-32); CHLORIDE LEVEL 108 MEQ/L (98-107); CREATININE FOR GFR 0.83 MG/DL (0.70-1.30); GLOMERULAR FILTRATION RATE > 60.0 (>60); GLUCOSE, FASTING 86 MG/DL (70-100); LIPASE 93 U/L (73-393); POTASSIUM SERUM 4.2 MEQ/L (3.5-5.1); SODIUM LEVEL 142 MEQ/L (136-145); TOTAL PROTEIN 6.7 GM/DL (6.4-8.2)
[2022-01-08] MEDS ORDERED: ISOVUE-370 76% 100ML VIAL As Ordered ONE (14:03)
[2022-01-08 15:56] LABS: RSV AMPLIFICATION NEGATIVE (NEGATIVE)
[2022-01-08] MEDS ORDERED: AMOX875T2 PO (15:59)
[2022-01-08] MEDS ORDERED: SUCR1TAB56 PO (15:59)
[2022-01-08] MEDS ORDERED: OMEP40CA5 PO (15:59)
[2022-01-08] MEDS ORDERED: HOME MED LIST COMPLETE! XX SCH (16:10)
[2022-01-08 18:00] VITALS: BP 120/82
== END 2022-01-08 18:17 | disposition short-term general hospital (02) ==
LOC: M ED 12:29
DX: K56.1 Intussusception (principal); Z98.84 Bariatric surgery status
CPT/HCPCS: 74177; 80048; 80076; 83605; 83690; 85025; 87631; 93041; 96361; 96374; 96375; 99285; C9113; J2270; J2405; Q9963; Q9967

== ENCOUNTER 2022-12-10 10:15 | Emergency (ER) | payer OTHER ==
[~2022-12-10] VITALS: Ht 167.6 cm; Wt 83.9 kg
[2022-12-10 10:15] VITALS: BP 117/71
[~2022-12-10 10:15] MED LIST changes: -MAGN1.743; +MAGN296S37; +SUCR1TAB56 PO
[2022-12-10] MEDS ORDERED: IBUP-1114 PO (10:22)
[2022-12-10] MEDS ORDERED: PERCOCET 5MG/325MG TAB PO ONE (11:45)
== END 2022-12-10 12:00 | disposition home or self-care (01) ==
LOC: M ED 10:15
DX: S49.92XA Unspecified injury of left shoulder and upper arm, initial encounter (principal); M25.512 Pain in left shoulder; W18.40XA Slipping, tripping and stumbling without falling, unspecified, initial encounter; Y92.009 Unspecified place in unspecified non-institutional (private) residence as the place of occurrence of the external cause; F17.200 Nicotine dependence, unspecified, uncomplicated

== ENCOUNTER 2023-04-14 10:03 | Emergency (ER) | payer OTHER ==
[~2023-04-14] VITALS: Ht 167.6 cm; Wt 84.0 kg
[~2023-04-14 10:03] MED LIST changes: +IBUP-1114 PO
[2023-04-14 10:04] VITALS: BP 126/74; TEMP 98.7; O2SAT 97
== END 2023-04-14 10:54 | disposition left against medical advice (07) ==
LOC: M ED 10:03
DX: Z53.21 Procedure and treatment not carried out due to patient leaving prior to being seen by health care provider (principal)

== ENCOUNTER 2024-04-10 20:25 | Emergency (ER) | payer OTHER, SELFPAY ==
[~2024-04-10] VITALS: Ht 167.6 cm; Wt 79.9 kg
[~2024-04-10 20:25] MED LIST changes: +CEFD1CAP9 PO; -CEFD300C41 PO; +ONDA-282 SL; +ONDA-284; -ONDA4TAB6 SL; -ONDA8TAB8
[2024-04-10 21:50] VITALS: BP 126/86; TEMP 98.8; O2SAT 98
== END 2024-04-10 21:56 | disposition home or self-care (01) ==
LOC: M ED 20:25
DX: U07.1 COVID-19 (principal); G43.909 Migraine, unspecified, not intractable, without status migrainosus; K21.9 Gastro-esophageal reflux disease without esophagitis; Z98.84 Bariatric surgery status; Z79.1 Long term (current) use of non-steroidal anti-inflammatories (NSAID)

== ENCOUNTER 2024-05-29 11:26 | Emergency (ER) | payer MEDICAID, SELFPAY ==
[~2024-05-29] VITALS: Ht 167.6 cm; Wt 77.3 kg
[2024-05-29 12:11] LABS: BASO % 0.8 % (0.0-1.0); EOS % 0.8 % (0.0-3.0); HEMATOCRIT 45.9 % (42.0-52.0); HEMOGLOBIN 15.1 g/dl (13.5-17.5); LYMPH # 1.2 10^3/uL (1.5-5.0); LYMPH % 32.7 % (24.0-44.0); MEAN CORPUSCULAR HEMOGLOBIN 29.2 pg (27.0-33.0); MEAN CORPUSCULAR HGB CONC 32.9 g/dl (32.0-36.5); MEAN CORPUSCULAR VOLUME 88.6 fl (80.0-96.0); MONO # 0.6 10^3/uL (0.0-0.8); MONO % 15.1 % (2.0-8.0); NEUTROPHILS # 1.8 10^3/uL (1.5-8.5); NEUTROPHILS % 50.1 % (36.0-66.0); PLATELET COUNT, AUTOMATED 203 10^3/uL (150-450); RED BLOOD COUNT 5.18 10^6/uL (4.30-6.10); WHITE BLOOD COUNT 3.6 10^3/uL (4.0-10.0)
[2024-05-29 12:29] LABS: BLOOD UREA NITROGEN 6 MG/DL (9-23); CARBON DIOXIDE LEVEL 31 MMOL/L (20-31); CHLORIDE LEVEL 108 MMOL/L (98-107); CK-MB VALUE MASS < 1.0 NG/ML (<3.6); CPK CREATINE PHOSPHOKINASE 213 U/L (46-171); CREATININE FOR GFR 0.99 MG/DL (0.70-1.30); GLOMERULAR FILTRATION RATE > 60.0 (>60); GLUCOSE, FASTING 77 MG/DL (60-100); MB/CK RELATIVE INDEX 0.46 (< OR =4); SODIUM LEVEL 140 MMOL/L (136-145)
[2024-05-29 13:24] LABS: CK-MB VALUE MASS < 1.0 NG/ML (<3.6)
[2024-05-29 13:31] LABS: CPK CREATINE PHOSPHOKINASE 203 U/L (46-171); MB/CK RELATIVE INDEX 0.49 (< OR =4)
[2024-05-29 14:08] LABS: THYROID STIMULATING HORMONE 1.306 uIU/ML (0.55-4.78)
[2024-05-29 15:16] VITALS: O2SAT 99
[2024-05-29 15:24] VITALS: BP 112/71; TEMP 99.3
== END 2024-05-29 15:31 | disposition home or self-care (01) ==
LOC: M ED 11:26
DX: R00.2 Palpitations (principal); R51.9 Headache, unspecified; F17.200 Nicotine dependence, unspecified, uncomplicated; Z98.84 Bariatric surgery status; Z90.89 Acquired absence of other organs